=== PATIENT | female | born 1940 | race Caucasian/White ===

== ENCOUNTER 2024-11-03 19:53 | Inpatient (IN) | payer MEDICARE ==
[2024-11-03] MEDS: Albuterol/Ipratropium 3.0-0.5 MG/3 ML Neb Soln NEB ONE (20:04)
[2024-11-03] MEDS: methylPREDNISolone Sodium Succinate 125 MG/2 ML SDV IVPUSH STA (20:06)
[2024-11-03 20:19] LABS: BASOPHILS ABSOLUTE AUTO 0.01 10^3/uL (0.00-0.50); BASOPHILS PERCENT AUTO 0.1 % (0-1); HEMATOCRIT 34.3 % (37.0-47.0); HEMOGLOBIN 11.2 g/dL (12.0-16.0); IMMATURE GRAN ABSOLUTE AUTO 0.01 10^3/uL (0.00-0.49); IMMATURE GRAN PERCENT AUTO 0.1 % (0.0-4.9); LYMPHOCYTES ABSOLUTE AUTO 1.24 10^3/uL (0.60-5.00); LYMPHOCYTES PERCENT AUTO 14.2 % (24-44); MEAN CORPUSCULAR HGB CONC 32.7 g/dL (32.0-36.0); MONOCYTES ABSOLUTE AUTO 0.83 10^3/uL (0.00-1.50); MONOCYTES PERCENT AUTO 9.5 % (0-10); NEUTROPHILS ABSOLUTE AUTO 6.64 x10^3/uL (1.80-8.00); NEUTROPHILS PERCENT AUTO 76.1 % (41-71); PLATELET COUNT,PLT 143 10^3/uL (150-400); RED BLOOD CELL COUNT 3.73 x10^6/uL (4.00-5.50); WHITE BLOOD CELL COUNT,WBC 8.7 10^3/uL (4.0-11.0)
[2024-11-03 20:43] LABS: ALANINE AMINOTRANSFERASE,ALT 21 U/L (12-78); ALBUMIN 3.3 g/dL (3.4-5.0); ALKALINE PHOSPHATASE 59 U/L (46-116); ASPARTATE AMNIOTRANSFERASE,AST 20 U/L (15-37); BILIRUBIN TOTAL 0.8 mg/dL (0.0-1.0); BLOOD UREA NITROGEN,BUN 11 mg/dL (7-18); C-REACTIVE PROTEIN 8.23 mg/dL (<=0.50); CARBON DIOXIDE,CO2 27 mmol/L (21-32); CHLORIDE,CL 101 mEq/L (98-106); ESTIMATED GFR 56 mL/min (>=60); GLUCOSE RANDOM 124 mg/dL (75-99); MAGNESIUM 1.4 mg/dL (1.8-2.4); POTASSIUM,K 3.5 mEq/L (3.5-5.0); PRO B-TYPE NATRIUR PEPT,BNPPRO 2691 pg/mL (0-1000); PROTEIN TOTAL,TP 6.9 g/dL (6.4-8.2); SODIUM,NA 140 mEq/L (136-145)
[2024-11-03] MEDS: cefTRIAXone 1 GM Vial IVPUSH SCH (20:49)
[2024-11-03 20:55] LABS: INFLUENZA A NAA NEGATIVE (NEGATIVE); INFLUENZA B NAA NEGATIVE (NEGATIVE)
[2024-11-03 20:56] LABS: CORONAVIRUS COVID-19 NAA POSITIVE (NEGATIVE)
[2024-11-03] MEDS: Azithromycin 500 MG in Sodium Chloride 0.9% 250 ML IV SCH (20:56)
[2024-11-03] MEDS: Furosemide 40 MG/4 ML VIAL IVPUSH ONE (21:01)
[2024-11-03] MEDS ORDERED: Ondansetron 4 MG/2 ML SDV IV PRN (22:03)
[2024-11-03] MEDS: REMDESIVIR 200 MG in Sodium Chloride 0.9% 250 ML IV ONE (22:03)
[2024-11-03] MEDS ORDERED: Non-Formulary Medication 1 Each (Melatonin [Melatonin] 5 MG Tablet) PO PRN (22:03)
[2024-11-03] MEDS ORDERED: Albuterol 0.083% 2.5 MG/3 ML Neb Soln NEB PRN (22:03)
[2024-11-03] MEDS ORDERED: Docusate Sodium 100 MG Cap PO PRN (22:03)
[2024-11-03] MEDS ORDERED: guaiFENesin 200 MG Tab PO PRN (22:03)
[2024-11-03] MEDS ORDERED: Ondansetron 4 MG Tab.DIS PO PRN (22:03)
[2024-11-03] MEDS ORDERED: Polyethylene Glycol 3350 Powder 17 GM Packet PO PRN (22:03)
[2024-11-03] MEDS: Acetaminophen 325 MG Tab PO PRN (23:28)
[2024-11-03] MEDS: REMDESIVIR 100 MG ONE (23:33)
[2024-11-04] MEDS ORDERED: Melatonin 3 MG Tab PO PRN (00:29)
[2024-11-04] MEDS: Magnesium Sulfate 2 GM/50 mL 2 GM in Premix Bag 1 BAG IV ONE (00:39)
[2024-11-04] MEDS: Pantoprazole 40 MG Tab.CR PO SCH (06:52)
[2024-11-04] MEDS: Levothyroxine 50 MCG Tab PO SCH (06:52)
[2024-11-04 07:30] LABS: ALBUMIN 3.1 g/dL (3.4-5.0); BILIRUBIN DIRECT 0.1 mg/dL (0.0-0.3); BILIRUBIN TOTAL 0.3 mg/dL (0.0-1.0); CALCIUM 9.1 mg/dL (8.4-10.1); EST CRCL DRUG DOSING (CG) 39.2 mL/min; POTASSIUM,K 3.3 mEq/L (3.5-5.0); PROTEIN TOTAL,TP 6.7 g/dL (6.4-8.2)
[2024-11-04 07:31] LABS: BASOPHILS ABSOLUTE AUTO 0.01 10^3/uL (0.00-0.50); BASOPHILS PERCENT AUTO 0.1 % (0-1); HEMATOCRIT 33.7 % (37.0-47.0); HEMOGLOBIN 11.2 g/dL (12.0-16.0); IMMATURE GRAN ABSOLUTE AUTO 0.02 10^3/uL (0.00-0.49); IMMATURE GRAN PERCENT AUTO 0.2 % (0.0-4.9); LYMPHOCYTES ABSOLUTE AUTO 0.93 10^3/uL (0.60-5.00); LYMPHOCYTES PERCENT AUTO 11.1 % (24-44); MEAN CORPUSCULAR HEMOGLOBIN 30.5 pg (27.0-32.0); MEAN CORPUSCULAR HGB CONC 33.2 g/dL (32.0-36.0); MEAN CORPUSCULAR VOLUME 91.8 fL (83.0-97.0); MONOCYTES ABSOLUTE AUTO 0.41 10^3/uL (0.00-1.50); MONOCYTES PERCENT AUTO 4.9 % (0-10); NEUTROPHILS ABSOLUTE AUTO 7.02 x10^3/uL (1.80-8.00); NEUTROPHILS PERCENT AUTO 83.7 % (41-71); PLATELET COUNT,PLT 151 10^3/uL (150-400); RED BLOOD CELL COUNT 3.67 x10^6/uL (4.00-5.50); WHITE BLOOD CELL COUNT,WBC 8.4 10^3/uL (4.0-11.0)
[2024-11-04] MEDS: TRELEGY INH SCH (08:29)
[2024-11-04] MEDS: Sertraline 25 MG Tab PO SCH (08:39)
[2024-11-04] MEDS: Furosemide 20 MG/2 ML VIAL IVPUSH SCH (08:39)
[2024-11-04] MEDS: Aspirin 81 MG Tab.EC PO SCH (08:39)
[2024-11-04] MEDS: Albuterol/Ipratropium 3.0-0.5 MG/3 ML Neb Soln NEB SCH (08:40)
[2024-11-04] MEDS: methylPREDNISolone Sodium Succinate 40 MG/1 ML SDV IVPUSH SCH (08:40)
[2024-11-04] MEDS: Potassium Chloride 20 MEQ Tab.ER PO SCH (11:05)
[2024-11-04] MEDS: Enoxaparin 40 MG/0.4 ML Syringe SUBCUT SCH (19:29)
[2024-11-04] MEDS: REMDESIVIR 100 MG in Sodium Chloride 0.9% 100 ML IV SCH (22:21)
[2024-11-05 07:40] LABS: ALBUMIN 3.5 g/dL (3.4-5.0); BILIRUBIN DIRECT 0.1 mg/dL (0.0-0.3); BILIRUBIN TOTAL 0.3 mg/dL (0.0-1.0); CALCIUM 9.5 mg/dL (8.4-10.1); CREATININE 1.2 mg/dL (0.6-1.0); EST CRCL DRUG DOSING (CG) 32.67 mL/min; POTASSIUM,K 3.6 mEq/L (3.5-5.0); PROTEIN TOTAL,TP 7.3 g/dL (6.4-8.2)
[2024-11-05 07:42] LABS: BASOPHILS ABSOLUTE AUTO 0.01 10^3/uL (0.00-0.50); BASOPHILS PERCENT AUTO 0.1 % (0-1); HEMATOCRIT 34.9 % (37.0-47.0); HEMOGLOBIN 11.7 g/dL (12.0-16.0); IMMATURE GRAN ABSOLUTE AUTO 0.07 10^3/uL (0.00-0.49); IMMATURE GRAN PERCENT AUTO 0.4 % (0.0-4.9); LYMPHOCYTES ABSOLUTE AUTO 1.62 10^3/uL (0.60-5.00); LYMPHOCYTES PERCENT AUTO 9.6 % (24-44); MEAN CORPUSCULAR HEMOGLOBIN 30.2 pg (27.0-32.0); MEAN CORPUSCULAR HGB CONC 33.5 g/dL (32.0-36.0); MEAN CORPUSCULAR VOLUME 89.9 fL (83.0-97.0); MONOCYTES ABSOLUTE AUTO 1.34 10^3/uL (0.00-1.50); MONOCYTES PERCENT AUTO 7.9 % (0-10); NEUTROPHILS ABSOLUTE AUTO 13.84 x10^3/uL (1.80-8.00); PLATELET COUNT,PLT 212 10^3/uL (150-400); RED BLOOD CELL COUNT 3.88 x10^6/uL (4.00-5.50); WHITE BLOOD CELL COUNT,WBC 16.9 10^3/uL (4.0-11.0)
[2024-11-05 13:32] LABS: APPEARANCE,URINE CLEAR (CLEAR); BILIRUBIN,URINE NEGATIVE (NEGATIVE); COLOR,URINE YELLOW (YELLOW); GLUCOSE,URINE NEGATIVE (NEGATIVE); KETONES,URINE NEGATIVE (NEGATIVE); LEUKOCYTE ESTERASE,URINE NEGATIVE (NEGATIVE); NITRITE,URINE NEGATIVE (NEGATIVE); OCCULT BLOOD,URINE TRACE-INTACT (NEGATIVE); PH,URINE 5.5 (4.5-8.0); PROTEIN,URINE NEGATIVE (NEGATIVE); UROBILINOGEN,URINE 0.2 EU/dL (0.2-1.0)
[2024-11-05 13:42] LABS: BACTERIA,URINE NOT SEEN /HPF (NOT SEEN); EPITHELIAL CELLS,URINE RARE /HPF (NOT SEEN); RBC,URINE 0-5 /HPF (0-5); WBC CASTS,URINE NOT SEEN /LPF (NOT SEEN); WBC,URINE NOT SEEN /HPF (0-5)
[2024-11-05] MEDS: ALPRAZolam 0.25 MG Tab PO PRN (20:33)
[2024-11-06 07:39] LABS: BASOPHILS ABSOLUTE AUTO 0.01 10^3/uL (0.00-0.50); BASOPHILS PERCENT AUTO 0.1 % (0-1); HEMATOCRIT 32.7 % (37.0-47.0); HEMOGLOBIN 10.7 g/dL (12.0-16.0); IMMATURE GRAN ABSOLUTE AUTO 0.09 10^3/uL (0.00-0.49); IMMATURE GRAN PERCENT AUTO 0.8 % (0.0-4.9); LYMPHOCYTES ABSOLUTE AUTO 1.24 10^3/uL (0.60-5.00); LYMPHOCYTES PERCENT AUTO 11.1 % (24-44); MEAN CORPUSCULAR HEMOGLOBIN 30.2 pg (27.0-32.0); MEAN CORPUSCULAR HGB CONC 32.7 g/dL (32.0-36.0); MEAN CORPUSCULAR VOLUME 92.4 fL (83.0-97.0); MONOCYTES ABSOLUTE AUTO 0.82 10^3/uL (0.00-1.50); MONOCYTES PERCENT AUTO 7.3 % (0-10); NEUTROPHILS PERCENT AUTO 80.7 % (41-71); PLATELET COUNT,PLT 187 10^3/uL (150-400); RED BLOOD CELL COUNT 3.54 x10^6/uL (4.00-5.50); WHITE BLOOD CELL COUNT,WBC 11.2 10^3/uL (4.0-11.0)
[2024-11-06 07:49] LABS: ALBUMIN 2.9 g/dL (3.4-5.0); BILIRUBIN DIRECT 0.1 mg/dL (0.0-0.3); BILIRUBIN TOTAL 0.2 mg/dL (0.0-1.0); CREATININE 0.9 mg/dL (0.6-1.0); EST CRCL DRUG DOSING (CG) 43.56 mL/min; POTASSIUM,K 3.9 mEq/L (3.5-5.0); PROTEIN TOTAL,TP 6.2 g/dL (6.4-8.2)
[2024-11-06] MEDS: Nystatin Susp 100,000 Unit/ML 5 ML UD Cup PO SCH (12:01)
[2024-11-06] MEDS: Calcium Carbonate/Vitamin D3 1250 MG-5 MCG Tab PO SCH (17:24)
[2024-11-06] MEDS: Rosuvastatin 10 MG Tab PO SCH (19:39)
[2024-11-06] MEDS ORDERED: Non-Formulary Medication 1 Each (Fluticasone Propion/Salmeterol [Fluticasone-Salmeterol 10 INH SCH (20:00)
[2024-11-07] MEDS: Fluticasone NASAL Spray 16 GM Bottle NASBOTH SCH (07:28)
[2024-11-07] MEDS: Furosemide 20 MG Tab PO SCH (07:29)
[2024-11-07 07:58] LABS: BASOPHILS ABSOLUTE AUTO 0.02 10^3/uL (0.00-0.50); BASOPHILS PERCENT AUTO 0.2 % (0-1); HEMATOCRIT 35.3 % (37.0-47.0); HEMOGLOBIN 11.6 g/dL (12.0-16.0); IMMATURE GRAN ABSOLUTE AUTO 0.25 10^3/uL (0.00-0.49); IMMATURE GRAN PERCENT AUTO 2.1 % (0.0-4.9); LYMPHOCYTES ABSOLUTE AUTO 2.43 10^3/uL (0.60-5.00); LYMPHOCYTES PERCENT AUTO 20.7 % (24-44); MEAN CORPUSCULAR HEMOGLOBIN 30.1 pg (27.0-32.0); MEAN CORPUSCULAR HGB CONC 32.9 g/dL (32.0-36.0); MEAN CORPUSCULAR VOLUME 91.7 fL (83.0-97.0); MONOCYTES ABSOLUTE AUTO 1.34 10^3/uL (0.00-1.50); MONOCYTES PERCENT AUTO 11.4 % (0-10); NEUTROPHILS ABSOLUTE AUTO 7.71 x10^3/uL (1.80-8.00); NEUTROPHILS PERCENT AUTO 65.6 % (41-71); PLATELET COUNT,PLT 237 10^3/uL (150-400); RED BLOOD CELL COUNT 3.85 x10^6/uL (4.00-5.50); WHITE BLOOD CELL COUNT,WBC 11.8 10^3/uL (4.0-11.0)
[2024-11-07 08:31] LABS: ALBUMIN 3.4 g/dL (3.4-5.0); BILIRUBIN DIRECT 0.1 mg/dL (0.0-0.3); BILIRUBIN TOTAL 0.3 mg/dL (0.0-1.0); CALCIUM 9.1 mg/dL (8.4-10.1); EST CRCL DRUG DOSING (CG) 39.2 mL/min; POTASSIUM,K 4.1 mEq/L (3.5-5.0); PROTEIN TOTAL,TP 6.9 g/dL (6.4-8.2)
[2024-11-07] MEDS: cefTRIAXone 1 GM Vial IVPUSH ONE (12:50)
[2024-11-07] MEDS: Azithromycin 250 MG Tab PO ONE (12:51)
== END 2024-11-07 14:55 | disposition home or self-care (01) | DRG 177 ==
LOC: CC.ED 19:53 → CC.MS 21:07 → UNDOADMIN 21:30
PROVIDERS: ADMIT Nurse Practitioner; ATTEND Nurse Practitioner
PROC: XW033E5 Introduction of Remdesivir Anti-infective into Peripheral Vein, Percutaneous Approach, New Technology Group 5 (ICD-10-PCS; principal; 2024-11-03)
PROC: 5A0935A Assistance with Respiratory Ventilation, Less than 24 Consecutive Hours, High Flow/Velocity Cannula (ICD-10-PCS; principal; 2024-11-03)
DX: U07.1 COVID-19 (principal); J18.9 Pneumonia, unspecified organism; J44.1 Chronic obstructive pulmonary disease with (acute) exacerbation; Z79.890 Hormone replacement therapy; J44.0 Chronic obstructive pulmonary disease with (acute) lower respiratory infection; I50.9 Heart failure, unspecified; E83.42 Hypomagnesemia; Z79.82 Long term (current) use of aspirin; Z79.899 Other long term (current) drug therapy
CPT/HCPCS: 0240U; 36415; 71045; 80053; 81001; 82248; 83605; 83735; 83880; 84484; 85025; 86140; 87040; 93005; 93010; 94640; 96374; 96375; 97110-GP; 97161-GP; 99223; 99232; 99233; 99239; 99285-25; A9270-GY; J0248; J0456; J0696; J1650; J1938; J2919; J3475; J7050